=== PATIENT | male | born 1995 | race Caucasian/White ===

== ENCOUNTER 2019-05-27 00:28 | Emergency (ER) | payer BC ==
[~2019-05-27] VITALS: Ht 185.4 cm; Wt 113.4 kg
[2019-05-27 00:30] VITALS: BP_SYST 143
--- NOTE | 2019-05-27 00:30 | NUR ---
Pt ambulatory to bed 5 for evaluation
--- NOTE | 2019-05-27 00:50 | NUR ---
Pt brought in by mother. Pt awake, alert, oriented x4. Pt ambulates with steady gait. Pt states that he has chief complaint of epigastric pain starting 24 hours ago. Pt states that he gets anxious sometimes, and feels like this may be attrtibuted to his previous panic attacks. Pt states that he finds it hard to breath, stating he feels unable to take a full breath at times, and has cramping and/or numbness in his hands during such episodes. Pt denies nausea, vomiting, diarrhea, shortness of breath at this time. Pt denies any other medical complaint at this time. Pt VSS. Resting in ED bed with mother bedside.
--- NOTE | 2019-05-27 01:02 | NUR ---
JENNIE Ramirez at bedside examining patient.
[2019-05-27] MEDS ORDERED: LORazepam 1 MG TABLET PO ONE (01:15)
--- NOTE | 2019-05-27 01:31 | NUR ---
Pt resting in ED bed. No acute distress.
[2019-05-27 01:55] VITALS: BP_SYST 114
--- NOTE | 2019-05-27 01:55 | NUR ---
Patient given written and verbal discharge instructions and verbalizes understanding. ER MD discussed with patient the results and treatment provided. Patient in stable condition. ID arm band removed. No IV No RX given. Patient educated on pain management and to follow up with PMD. Pain Scale 0/10. Opportunity for questions provided and answered.
== END 2019-05-27 01:55 | disposition home or self-care (01) ==
LOC: SED 00:28
DX: F41.9 Anxiety disorder, unspecified (principal)
CPT/HCPCS: 93005; 99283